=== PATIENT | female | born 1965 | race Caucasian/White ===

== ENCOUNTER 2017-10-28 20:23 | Emergency (ER) | payer BC ==
[~2017-10-28] VITALS: Ht 165.1 cm; Wt 53.0 kg
[~2017-10-28 20:23] MED LIST: BUPR300T PO; CARV3.12 PO; GABA100C4 PO; LOTR5CAP2 PO; MAGN250T13 PO; METO5TAB PO; PRIL10CA PO; TAB-TAB PO
[2017-10-28 20:29] VITALS: BP 134/92; PULSE 97; RESP 18; TEMP 98.3; O2SAT 97
--- NOTE | 2017-10-28 21:06 | PD ---
HPI . Left rib pain Chief Complaint: Fall Time Seen by Provider: 20:40 Travel History International Travel<30 days: No Contact w/Intl Traveler<30days: No Traveled to known affect area: No History of Present Illness HPI Patient presents for evaluation of injury sustained in a fall. She states that she was bringing in her groceries at about 3 PM. She states that she had 2 steps from her garage into her house. She states that she inadvertently fell backwards and landed on the concrete. She struck her head, her left rib cage and her left lower leg. She comes in with a chief complaint of left rib pain. She rates the pain at 6/10. The pain has been continuous and is getting progressively worse. Pain is exacerbated by movement and deep breathing but she does not have any associated shortness of breath. She denies loss of consciousness. She denies any signs or symptoms of head injury such as headache , blurred vision, nausea, altered mental status. 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) Cardiovascular Problems: Yes High Cholesterol: No Chemotherapy: No Chest Pain: No Congestive Heart Failure: No COPD: No Cerebrovascular Accident: No Diminished Hearing: No Endocrine: No Gastrointestinal Disorders: Yes GERD: No Genitourinary: No Headaches: No Hepatitis: No Hiatal Hernia: No Hypertension: Yes Immune Disorder: No Musculoskeletal: Yes Neurologic: Yes Psychiatric: No Reproductive: No Respiratory: Yes Myocardial Infarction: Yes (2006) Radiation Therapy: No Seizures: No Sickle Cell Disease: No Sleep Apnea: No Ulcer: No Tetanus Vaccination: < 5 Years Influenza Vaccination: No ?: Not : 1 Para: 1 Past Surgical History Abdominal Surgery: No AICD: No Cardiac Surgery: No Section: Yes Ear Surgery: No Endocrine Surgery: No Eye Surgery: No Genitourinary Surgery: No Gynecologic Surgery: No Insulin Pump: No Joint Replacement: No Neurologic Surgery: No Oral Surgery: No Pacemaker: No Thoracic Surgery: No 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) Social History Alcohol Use: Yes (6 DRINKS/DAY) Tobacco Use: Yes (4/daily) Substance Use: No Allergies-Medications (Allergen,Severity, Reaction): Coded Allergies: No Known Allergies (Verified , 04/28/11) Reported Meds & Prescriptions Reported Meds & Active Scripts Active Reglan (Metoclopramide HCl) 5 Mg Tab 5 Mg PO TIDAC Reported Multivitamin (Multivitamins) 1 Tab Tab 1 Tab PO DAILY Magnesium 250 Mg Tab 250 Mg PO DAILY Gabapentin 100 Mg Cap 100 Mg PO BID Lotrel 5/10 (Amlodipine/Benazepril HCl) 5 - Cap 1 Cap PO DAILY 10/40MG Bupropion Hcl Xl (Bupropion HCl) 300 Mg Tab 150 Mg PO DAILY Carvedilol 3.125 Mg Tab 3.125 Mg PO BID Prilosec (Omeprazole) 10 Mg Cap 20 Mg PO DAILY Review of Systems Except as stated in HPI: all other systems reviewed are Neg Physical Exam Narrative GENERAL: Patient is awake and alert. SKIN: warm/dry. She has a superficial abrasion on the left lateral thigh. She has several superficial bruises to the lower left leg. HEAD: Normocephalic. She has 2 peripheral contusions on her scalp. EYES: Pupils equal and round. Extraocular movements are intact. ENT: Mucous membranes pink and moist. NECK: Supple. Full range of motion without pain. Nontender. CARDIOVASCULAR: Regular rate and rhythm. RESPIRATORY: No accessory muscle use. Clear to auscultation. Breath sounds equal bilaterally. Tenderness to palpation of the left lateral rib cage with no crepitus, bruising or abrasions. GASTROINTESTINAL: Abdomen soft. Nontender. Bowel sounds present. Nondistended. MUSCULOSKELETAL: No obvious deformities. Normal muscle tone. NEUROLOGICAL: Awake and alert. No obvious cranial nerve deficits. Motor grossly within normal limits. Normal speech. PSYCHIATRIC: Appropriate mood and affect; insight and judgment normal. Data Data Last Documented VS Vital Signs Date Time Temp Pulse Resp B/P (MAP) Pulse Ox O2 Delivery O2 Flow Rate FiO2 10/28/17 20:47 18 10/28/17 20:29 98.3 97 134/92 (106) [address] Brain W/O Iv Contrast(Rout) (10/28/17 20:52) Ribs, Uni (W/Exp Cxr-Min 3vw) (10/28/17 20:52) Resp Request For Service (10/28/17 ) Ketorolac Inj (Toradol Inj) (10/28/17 21:45) MDM Medical Decision Making Medical Screen Exam Complete: Yes Emergency Medical Condition: Yes Differential Diagnosis My differential diagnosis of head trauma includes but is not limited to scalp contusion, concussion, intracerebral hemorrhage. Differential diagnosis of chest trauma includes but is not limited to superficial abrasions/contusions, rib fracture, pneumothorax, hemothorax, pulmonary contusion, cardiac contusion, ruptured thoracic aorta Narrative Course This patient presents for the evaluation of injury sustained in a fall. She fell this afternoon onto concrete striking her head. She denies loss of consciousness. She has 2 palpable contusions on her scalp. She is complaining with left lateral rib cage pain. She does not have any difficulty breathing. CT of her head and x-rays of her left ribs are pending. Last Impressions Ribs X-Ray 10/28/172051 Signed Impressions: CONCLUSION: Fractures of the left ninth, 10th and 11th ribs. No pneumothorax. Head CT 10/28/172051 Signed Impressions: CONCLUSION: 1. No acute intracranial abnormalities. There is some cortical volume loss. Po sterior scalp swelling bilaterally. The plain films were independently reviewed by me. E-Panchoe has been queried and reviewed. She will be discharged with a prescription for Fults. She will also be given an incentive spirometer. She will be asked to follow-up with her primary care physician next week. Diagnosis Primary Impression: Left rib fracture Qualified Codes: S22.42XA - Multiple fractures of ribs, left side, initial encounter for closed fracture Additional Impression: Scalp contusion Qualified Codes: S00.03XA - Contusion of scalp, initial encounter Referrals: Alan Love MD PhD 1 week Patient Instructions: General Instructions, Rib Fracture (DC), Scalp Contusion in Adults (ED) Med/Other Pt SpecificInfo: Prescription(s) given Scripts Hydrocodone-Acetaminophen (Fults) 5 Mg-325 Mg Tab 1 TAB PO Q4H Y for PAIN, #12 TAB 0 Refills Prov: Romi Leonard MD 10/28/17 Disposition: 01 DISCHARGE HOME Condition: Stable Romi Leonard MD Oct 28, 2017 21:06
--- NOTE | 2017-10-28 21:28 | RADRPT ---
EXAM DATE: 10/28/2017 9:17 PM EDT AGE/SEX: 52 years / Female INDICATIONS: Left rib pain after fall. CLINICAL DATA: This is the patient's initial encounter. Patient reports that signs and symptoms have been present for 1 day and indicates a pain score of 10/10. MEDICAL/SURGICAL HISTORY: None. None. COMPARISON: No prior exams available for comparison. FINDINGS: There are fractures of the left lower 10th and ninth ribs and probably also the 11th rib. There is no pneumothorax or pleural effusion. Lungs are clear. CONCLUSION: Fractures of the left ninth, 10th and 11th ribs. No pneumothorax. Electronically signed by: Clive Rush MD 10/28/2017 9:27 PM EDT
--- NOTE | 2017-10-28 21:35 | RADRPT ---
EXAM DATE: 10/28/2017 9:26 PM EDT AGE/SEX: 52 years / Female INDICATIONS: Slipped and fell backwards, hit head. CLINICAL DATA: This is the patient's initial encounter. Patient reports that signs and symptoms have been present for 1 day and indicates a pain score of 4/10. MEDICAL/SURGICAL HISTORY: Cardiovascular disease. Hypertension. None. RADIATION DOSE: 47.89 CTDI (mGy) COMPARISON: No prior exams available for comparison. TECHNIQUE: CT of the head without contrast. Using automated exposure control and adjustment of the mA and/or kV according to patient size, radiation dose was kept as low as reasonably achievable to ob tain optimal diagnostic quality images. DICOM format image data is available electronically for revi ew and comparison. FINDINGS: Cerebrum: The ventricles are normal for age. No evidence of midline shift, mass lesion, hemorrhage or acute infarction. No extraaxial fluid collections are seen. Posterior Fossa: The cerebellum and brainstem are intact. The 4th ventricle is midline. The cerebe llopontine angle is unremarkable. Extracranial: The visualized portion of the orbits is intact. Skull: The calvaria is intact. No evidence of skull fracture. CONCLUSION: 1. No acute intracranial abnormalities. There is some cortical volume loss. Posterior scalp swelling bilaterally. Electronically signed by: Clive Rush MD 10/28/2017 9:34 PM EDT
[2017-10-28] MEDS ORDERED: KETOROLAC TROMETHAMINE 60 MG/2 ML (IM) VIAL IM ONE (21:45)
[2017-10-28] MEDS ORDERED: NORC5TAB PO (21:45)
== END 2017-10-28 22:06 | disposition home or self-care (01) ==
LOC: PHED 20:23
DX: S22.42XA Multiple fractures of ribs, left side, initial encounter for closed fracture (principal); S00.03XA Contusion of scalp, initial encounter; F41.9 Anxiety disorder, unspecified; I10 Essential (primary) hypertension; W01.198A Fall on same level from slipping, tripping and stumbling with subsequent striking against other object, initial encounter; Y93.01 Activity, walking, marching and hiking; Y92.000 Kitchen of unspecified non-institutional (private) residence as the place of occurrence of the external cause; Z72.0 Tobacco use
CPT/HCPCS: 70450; 71101; 94150; 96372; 99284; J1885